=== PATIENT | male | born 1980 | race African-American/Black ===

== ENCOUNTER 2017-06-18 10:08 | Emergency (ER) | payer SELFPAY ==
[~2017-06-18] VITALS: Ht 185.4 cm; Wt 97.1 kg
[2017-06-18] MEDS ORDERED: ONDANSETRON HCL INJ 2 MG/ML VIAL IV STA (10:41)
[2017-06-18] MEDS ORDERED: KETOROLAC TROMETHAMINE 30 MG/ML VIAL IV STA (10:41)
[2017-06-18] MEDS ORDERED: SODIUM CHLORIDE 0.9% 1000ML 1,000 ML IV ONE (10:45)
[2017-06-18 11:36] LABS: STREPTOCOCCUS GRP A ANTIGEN POSITIVE (NEGATIVE)
[2017-06-18 11:45] LABS: INFLUENZAE A&B ANTIGEN (RAPID) NEGATIVE (NEGATIVE)
[2017-06-18 11:58] LABS: BASOPHILS # (AUTO) 0.1 (0.0-0.1); BASOPHILS % 0.5 % (0.0-1.0); EOSINOPHILS % 0.2 % (0.0-6.0); HEMATOCRIT 40.5 % (38.2-49.6); HEMOGLOBIN 13.8 g/dL (14.0-18.0); LYMPHOCYTES # (AUTO) 2.1 (1.0-3.2); LYMPHOCYTES % 21.4 % (18.0-39.1); MEAN CORPUSCULAR HGB CONC 34.1 g/dL (31-35); MEAN CORPUSCULAR VOLUME 85.1 fL (81-99); MONOCYTES # (AUTO) 0.7 (0.2-0.8); MONOCYTES % 7.5 % (4.4-11.3); NEUTROPHILS # (AUTO) 6.7 (2.1-6.9); NEUTROPHILS % 69.6 % (38.7-80.0); PLATELET COUNT 313 x10e3/uL (140-360); RED BLOOD COUNT 4.76 x10e6/uL (4.3-5.7); RED CELL DISTRIBUTION WIDTH 12.4 % (11.7-14.4)
[2017-06-18 12:13] LABS: ANION GAP 16.5 mmol/L (8-16); BLOOD UREA NITROGEN 10 mg/dL (7-26); BUN/CREATININE RATIO 10 (6-25); CALCIUM 9.4 mg/dL (8.4-10.2); CARBON DIOXIDE 25 mmol/L (22-29); CHLORIDE 100 mmol/L (98-107); CREATININE, SERUM 0.97 mg/dL (0.72-1.25); EST GLOMERULAR FILTRATION RATE > 60 ML/MIN (60-); GLUCOSE 90 mg/dL (74-118); POTASSIUM 3.5 mmol/L (3.5-5.1); SODIUM 138 mmol/L (136-145)
[2017-06-18] MEDS ORDERED: PENICILLIN G BENZATHINE LA 1.2 MU TBX IM STA (12:25)
[2017-06-18] MEDS ORDERED: DEXAMETHASONE SOD PHOS 10 MG/1 ML VIAL IV ONE (12:30)
== END 2017-06-18 13:38 | disposition home or self-care (01) ==
LOC: ER 10:08
DX: R50.9 Fever, unspecified (principal); J02.0 Streptococcal pharyngitis
CPT/HCPCS: 36415; 80048; 83518; 85025; 87400; 99283; J0561; J1100; J1885; J2405; J7030

== ENCOUNTER 2017-06-20 09:44 | Inpatient (IN) | payer SELFPAY ==
[~2017-06-20] VITALS: Ht 185.4 cm; Wt 97.1 kg
--- OUTSIDE RECORDS SUMMARY | 2017-06-20 09:46 | XMS REPORT | Continuity of Care Document ---
Author Author [facility] Organization [facility] Address [address] [place] [address] Phone Unavailable Care Team Providers Care Bench Molder Name Role Phone NO, PCP PCP Unavailable Advance Directives Directive Response Recorded Date/Time Does the patient have an advance directive? No 06/18/17 10:24am If yes, is advance directive on file with [facility]? No 06/18/17 10:24am If not on file with [facility] will patient provide a copy? No 06/18/17 10:24am Do you have a Directive to Physician? No 06/18/17 10:24am Do you have a Medical Power of [place] Machine Operator Helper? No 06/18/17 10:24am Do you have an out of hospital Do Not Resuscitate Order? No 06/18/17 10:24am Do you have any special needs we should be aware of? No 06/18/17 10:24am Do you have a support person here with you today? Yes 06/18/17 10:24am Did patient receive Notice of Privacy Practices? Yes 06/18/17 10:24am Did patient receive patient rights and responsibilities? Yes 06/18/17 10:24am Problems No problem information available. Medications No medication information available. Social History Smoking Status Start Date Stop Date Never Smoker Hospital Discharge Instructions No hospital discharge instruction information available. Plan of Care Discharge Date 06/18/17 1:38pm Disposition HOME, SELF-CARE Condition at Discharge Stable Instructions/Education Provided Strep Throat - Adult Forms Provided Work/School Excuse Prescriptions See Medication Section Referrals NO,PCP Functional Status No functional status information available. Allergies, Adverse Reactions, Alerts No known allergies. Immunizations No immunization information available. Vital Signs Acute Vital Signs Vital Response Date/Time Height 6 ft 1 in 06/18/2017 10:22am Weight 214 lb 06/18/2017 10:22am Body Mass Index 28.2 kg/m^2 06/18/2017 10:22am Results Laboratory Results Test Name Result Units Flags Reference Collection Date/Time Result Date/ Time Comments White Blood Count 9.59 x10e3/uL 4.8-10.8 06/18/2017 11:32am 06/18/2017 12:02pm Red Blood Count 4.76 x10e6/uL 4.3-5.7 06/18/2017 11:32am 06/18/2017 12: 02pm Hemoglobin 13.8 g/dL L 14.0-18.0 06/18/2017 11:3206/18/2017 12:02pm Hematocrit 40.5 % 38.2-49.6 06/18/2017 11:3206/18/2017 12:02pm Mean Corpuscular Volume 85.1 fL 81-99 06/18/2017 11:3206/18/2017 12: 02pm Mean Corpuscular Hemoglobin 29.0 pg 28-32 06/18/2017 11:322017 12:02pm Mean Corpuscular Hemoglobin Concent 34.1 g/dL 31-35 06/18/2017 11:3206/18/2017 12:02pm Red Cell Distribution Width 12.4 % 11.7-14.4 06/18/2017 11:322017 12:02pm Platelet Count 313 x10e3/uL 140-360 06/18/2017 11:3206/18/2017 12: 02pm Neutrophils (%) (Auto) 69.6 % 38.7-80.0 06/18/2017 11:3206/18/2017 12:02pm Lymphocytes (%) (Auto) 21.4 % 18.0-39.1 06/18/2017 11:3206/18/2017 12:02pm Monocytes (%) (Auto) 7.5 % 4.4-11.3 06/18/2017 11:3206/18/2017 12: 02pm Eosinophils (%) (Auto) 0.2 % 0.0-6.0 06/18/2017 11:32am 06/18/2017 12: 02pm Basophils (%) (Auto) 0.5 % 0.0-1.0 06/18/2017 11:32am 06/18/2017 12: 02pm IM GRANULOCYTES % 0.8 % 0.0-1.0 06/18/2017 11:32am 06/18/2017 12:02pm Neutrophils # (Auto) 6.7 2.1-6.9 06/18/2017 11:3206/18/2017 12: 02pm Lymphocytes # (Auto) 2.1 1.0-3.2 06/18/2017 11:32am 06/18/2017 12: 02pm Monocytes # (Auto) 0.7 0.2-0.8 06/18/2017 11:32am 06/18/2017 12:02pm Eosinophils # (Auto) 0.0 0.0-0.4 06/18/2017 11:3206/18/2017 12: 02pm Basophils # (Auto) 0.1 0.0-0.1 06/18/2017 11:3206/18/2017 12:02pm Absolute Immature Granulocyte (auto 0.08 x10e3/uL 0-0.1 06/18/2017 11: 32am 06/18/2017 12:02pm Sodium Level 138 mmol/L 136-145 06/18/2017 11:32am 06/18/2017 12:15pm Potassium Level 3.5 mmol/L 3.5-5.1 06/18/2017 11:32am 06/18/2017 12: 15pm Chloride Level 100 mmol/L 98-107 06/18/2017 11:3206/18/2017 12:15pm Influenza Virus Types A,B Antigen NEGATIVE NEGATIVE 06/18/2017 10: 26am 06/18/2017 11:45am Carbon Dioxide Level 25 mmol/L 22-06/18/2017 11:3206/18/2017 12: 15pm Anion Gap 16.5 mmol/L H 8-16 06/18/2017 11:32am 06/18/2017 12:15pm Blood Urea Nitrogen 10 mg/dL 7-06/18/2017 11:3206/18/2017 12: 15pm Creatinine 0.97 mg/dL 0.72-1.25 06/18/2017 11:32am 06/18/2017 12:15pm BUN/Creatinine Ratio 10 6-25 06/18/2017 11:32am 06/18/2017 12:15pm Estimat Glomerular Filtration Rate > 60 ML/MIN 60- 06/18/2017 11:32am 06/18/2017 12:15pm Ranges were taken from the National Kidney Disease Education Program and the National Kid[employer] Foundation literature. Reference ranges: 60 or greater: Normal 16-59 (for 3 consecutive months): Chronic kidney disease 15 or less: Kidney failure Glucose Level 90 mg/dL 74-118 06/18/2017 11:32am 06/18/2017 12:15pm Calcium Level 9.4 mg/dL 8.4-10.2 06/18/2017 11:32am 06/18/2017 12:15pm Group A Streptococcus Screen POSITIVE H NEGATIVE 06/18/2017 10:26am 11:36am Procedures No procedure information available. Encounters Encounter Location Arrival/Admit Date Discharge/Depart Date Attending Provider Departed Emergency Room [facility] 06/18/17 10:08am 06/18 1:38pm FLORECITA PAUL MD
[2017-06-20] MEDS ORDERED: SODIUM CHLORIDE 0.9% 1000ML 1,000 ML IV ONE (10:15)
[2017-06-20] MEDS ORDERED: CLINDAMYCIN PHOS 900MG/ D5W 50 50 ML IV STA (10:16)
[2017-06-20 10:43] LABS: BASOPHILS # (AUTO) 0.1 (0.0-0.1); BASOPHILS % 0.3 % (0.0-1.0); HEMATOCRIT 39.5 % (38.2-49.6); HEMOGLOBIN 13.5 g/dL (14.0-18.0); LYMPHOCYTES # (AUTO) 2.4 (1.0-3.2); LYMPHOCYTES % 11.6 % (18.0-39.1); MEAN CORPUSCULAR HEMOGLOBIN 29.2 pg (28-32); MEAN CORPUSCULAR HGB CONC 34.2 g/dL (31-35); MEAN CORPUSCULAR VOLUME 85.3 fL (81-99); MONOCYTES % 4.9 % (4.4-11.3); NEUTROPHILS # (AUTO) 16.8 (2.1-6.9); NEUTROPHILS % 82.7 % (38.7-80.0); PLATELET COUNT 322 x10e3/uL (140-360); RED BLOOD COUNT 4.63 x10e6/uL (4.3-5.7); RED CELL DISTRIBUTION WIDTH 12.6 % (11.7-14.4)
[2017-06-20] MEDS ORDERED: MORPHINE SULFATE 2 MG/ML SYR IV STA (10:46)
[2017-06-20] MEDS ORDERED: LEVOFLOXACIN 500MG/D5W 100ML 100 ML IV STA (10:49)
[2017-06-20 11:00] LABS: ALANINE AMINOTRANSFERASE 13 IU/L (0-55); ALBUMIN 3.3 g/dL (3.5-5.0); ALBUMIN/GLOBULIN RATIO 0.7 (0.8-2.0); ALKALINE PHOSPHATASE 66 IU/L (40-150); ANION GAP 15.2 mmol/L (8-16); BLOOD UREA NITROGEN 10 mg/dL (7-26); BUN/CREATININE RATIO 9 (6-25); CALCIUM 9.3 mg/dL (8.4-10.2); CARBON DIOXIDE 25 mmol/L (22-29); CHLORIDE 99 mmol/L (98-107); CREATININE, SERUM 1.08 mg/dL (0.72-1.25); EST GLOMERULAR FILTRATION RATE > 60 ML/MIN (60-); GLUCOSE 112 mg/dL (74-118); POTASSIUM 3.2 mmol/L (3.5-5.1); SODIUM 136 mmol/L (136-145)
[2017-06-20] MEDS ORDERED: LEVOFLOXACIN 750MG/D5W 150ML 150 ML IV ONE (11:00)
[2017-06-20] MEDS ORDERED: SODIUM CHLORIDE 0.9% 1000ML 1,000 ML IV SCH (11:05)
[2017-06-20] MEDS ORDERED: FAMOTIDINE 20 MG/2 ML VIAL IV STA (11:11)
[2017-06-20] MEDS ORDERED: SODIUM CHLORIDE 0.9% 1000ML 1,000 ML IV STA ×2 (11:11)
[2017-06-20] MEDS ORDERED: VANCOMYCIN 1GM/NS 250 ML 250 ML IV STA (11:11)
--- NOTE | 2017-06-20 11:58 | Diagnostic Imaging Report ---
PROCEDURE:CHEST SINGLE (PORTABLE) TECHNIQUE:Portable AP chest INDICATION:Fever COMPARISON:None. FINDINGS: Lungs are clear and symmetrically inflated. No pleural effusions. Normal heart size, mediastinal contour, and pulmonary vasculature. Normal skeleton. CONCLUSION: Normal portable chest. Dictated by: Juan Luis Key M.D. on 06/20/2017 at 11:59 Electronically approved by: Juan Luis Key M.D. on 06/20/2017 at 11:59
--- NOTE | 2017-06-20 12:11 | Diagnostic Imaging Report ---
PROCEDURE:CT ABDOMEN AND PELVIS WITH CONTRAST COMPARISON:None. INDICATIONS:Abscess TECHNIQUE: Routine protocol Volumetric CT abdomen and pelvis after administration of 100 mL Isovue-370 intravenous contrast and 900 mL enteric water. Multiplanar reformatted images. DLP: 511.66 FINDINGS: Clear lung bases. No pleural effusions. Normal heart size. Liver: Normal Gallbladder: Normal Pancreas: Normal Spleen: Normal Adrenal glands: Normal Kidneys: Normal Urinary bladder: Normal Prostate and seminal vesicles: Normal Bowel: Normal caliber. Normal appendix. Peritoneum: Normal Vasculature: Normal Lymph nodes: Subcentimeter right inguinal nodes, slightly increased in number. No pelvic or retroperitoneal nodes. Skeleton: Normal Soft tissues: Fat stranding over the right hip and inguinal region without focal fluid collection. CONCLUSION: 1. Soft tissue inflammation over the right hip and inguinal region consistent with cellulitis. No abscess or subcutaneous emphysema. 2. Reactive right inguinal lymphadenopathy. Dictated by: Juan Luis Key M.D. on 06/20/2017 at 12:11 Electronically approved by: Juan Luis Key M.D. on 06/20/2017 at 12:11
--- OUTSIDE RECORDS SUMMARY | 2017-06-20 12:15 | XMS REPORT ---
Author Author [facility] Address Unknown Phone Unavailable Care Team Providers Care Mold Filling Operator Name Role Phone DARY JENKINS Unavailable Unavailable Problems This patient has no known problems. Allergies, Adverse Reactions, Alerts This patient has no known allergies or adverse reactions. Medications This patient has no known medications. Results Test Description Test Time Test Comments Text Results Atomic Results Result Comments CHEST SINGLE (PORTABLE) [place] [address] Patient Name: RODRIGUEZ ACHARYA JR MR #: [id number] : 1980 Age/Sex: 36/M Req #: [id number] Adm Physician: Ordered by: DARY JENKINS MD, MD Report #: [id number] Location: ER Room/Bed: Procedure: [id number] DX/CHEST SINGLE (PORTABLE) Exam Date: 06/20/17 Exam Time: 1145 REPORT STATUS: Signed PROCEDURE: CHEST SINGLE (PORTABLE) TECHNIQUE: Portable AP chest INDICATION: Fever COMPARISON: None. FINDINGS: Lungs are clear and symmetrically inflated. No pleural effusions. Normal heart size, mediastinal contour, and pulmonary vasculature. Normal skeleton. CONCLUSION: Normal portable chest. Dictated by: Crissy Key M.D. on 2017 at 11:59 Electronically approved by: Crissy Key M.D. on 11/2017 at 11:59 Dictated By: CRISSY KEY MD 1159 Transcribed By: NAE on 06/20/17 1159 COPY TO: DARY JENKINS CT ABDOMEN/PELVIS W [facility] [address] [place] [address] Patient Name: RODRIGUEZ ACHARYA JR MR #: [id number] : 1980 Age/Sex: 36/M Req #: [id number] Adm Physician: Ordered by: LESVIA GUERRERO TREATING PLANT OPERATOR Report #: [id number] Location: ER Room/Bed: Procedure: [id number] CT/CT ABDOMEN/PELVIS W Exam Date: 06/20/17 Exam Time: 1120 REPORT STATUS: Signed PROCEDURE: CT ABDOMEN AND PELVIS WITH CONTRAST COMPARISON: None. INDICATIONS: Abscess TECHNIQUE: Routine protocol Volumetric CT abdomen and pelvis after administration of 100 mL Isovue-370 intravenous contrast and 900 mL enteric water. Multiplanar reformatted images. DLP: 511.66 FINDINGS: Clear lung bases. No pleural effusions. Normal heart size. Liver: Normal Gallbladder: Normal Pancreas: Normal Spleen: Normal Adrenal glands: Normal Kidneys: Normal Urinary bladder: Normal Prostate and seminal vesicles: Normal Bowel: Normal caliber. Normal appendix. Peritoneum: Normal Vasculature: Normal Lymph nodes: Subcentimeter right inguinal nodes, slightly increased in number. No pelvic or retroperitoneal nodes. Skeleton: Normal Soft tissues: Fat stranding over the right hip and inguinal region without focal fluid collection. CONCLUSION: 1. Soft tissue inflammation over the right hip and inguinal region consistent with cellulitis. No abscess or subcutaneous emphysema. 2. Reactive right inguinal lymphadenopathy. Dictated by: Crissy Key M.D. on 06/20/2017 at 12:11 Electronically approved by: Crissy Key M.D. on 2017 at 12:11 Dictated By: CRISSY KEY MD 1211 Transcribed By: NAE on 1211 COPY TO: LESVIA GUERRERO NP
[2017-06-20 12:55] LABS: INR 1.31; PROTHROMBIN TIME 15.3 seconds (11.9-14.5)
[2017-06-20 12:56] LABS: PARTIAL THROMBOPLASTIN TIME 49.2 seconds (23.8-35.5)
[2017-06-20 13:00] LABS: MAGNESIUM 1.5 MG/DL (1.3-2.1)
[2017-06-20 13:06] LABS: CREATINE KINASE MB 0.1 ng/mL (0-5.0)
[2017-06-20] MEDS ORDERED: LISINOPRIL10 MG PO (13:11)
[2017-06-20 13:36] VITALS: BP 143/95
[2017-06-20 14:02] VITALS: BP 164/71
[2017-06-20] MEDS: ONDANSETRON HCL INJ 2 MG/ML VIAL IV PRN (14:50)
[2017-06-20] MEDS ORDERED: MIDAZOLAM HCL 2 MG/2 ML VIAL ONE (14:54)
[2017-06-20] MEDS ORDERED: FENTANYL CITRATE/PF 100MCG/2 ML INJ ONE (14:54)
[2017-06-20] MEDS: MORPHINE SULFATE 2 MG/ML SYR IV PRN ×2 (15:01→21:09)
[2017-06-20 15:33] VITALS: BP 125/63
[2017-06-20] MEDS ORDERED: SODIUM CHLORIDE 0.9% 50ML 50 ML ONE (15:34)
[2017-06-20] MEDS ORDERED: IOPAMIDOL 370 MG/ML 200 ML INFUS..BTL INJ ONE (15:34)
[2017-06-20] MEDS ORDERED: POTASSIUM CHLORIDE 20MEQ/100ML 100 ML IV ONE (15:45)
[2017-06-20] MEDS: POTASSIUM CHLORIDE 20MEQ/100ML 100 ML IV ONE ×2 (16:00→16:20)
[2017-06-20] MEDS: CLINDAMYCIN PHOS 900MG/ D5W 50 50 ML IV SCH ×2 (17:00→23:10)
--- NOTE | 2017-06-20 20:09 | Consultation ---
DATE OF CONSULTATION: June 20, 2017 CHIEF COMPLAINT: Right groin infection. HISTORY OF PRESENT ILLNESS: The patient is a 36-year-old male with chief complaint of a 2-day history of right groin swelling, redness and tenderness with subjective fever. Denied history of insect bite or injury to the area. No prior history of similar infection. REVIEW OF SYSTEMS: No chest pain or shortness of breath or cough. PAST MEDICAL HISTORY: Unremarkable for any chronic medical illness or surgery. ALLERGIES: NO KNOWN DRUG ALLERGIES. SOCIAL HABITS: The patient denies smoking or alcohol abuse. PHYSICAL EXAMINATION: VITALS: Stable. He has a temperature of 100. GENERAL: Patient is awake, alert in moderate discomfort. HEENT: Sclerae nonicteric. NECK: Supple. LUNGS: Clear. HEART: Regular rate and rhythm. ABDOMEN: Soft and nontender. EXTREMITIES: Revealed redness and swelling in the right medial thigh near the groin area with a small puncture wound, medial aspect draining purulent material. White cell count 20,000. Hemoglobin of 13. Creatinine 1.0. CT scan of the pelvis showed soft tissue inflammation with no abscess formation. ASSESSMENT: Soft tissue infection in the right inguinal area. IV antibiotics. Patient may need incision and drainage if no progress with antibiotics alone. Thank you for the consultation. Job#: [id number]
[2017-06-21] MEDS ORDERED: MEROPENEM 1GRAM 1 GM in SODIUM CHLORIDE 0.9% 100 ML 100 ML IV PRN (00:15)
[2017-06-21 00:31] VITALS: BP 149/93
[2017-06-21] MEDS: VANCOMYCIN 1GM/NS 250 ML 250 ML IV SCH ×2 (01:28→13:47)
[2017-06-21] MEDS: ACETAMINOPHEN 325 MG TAB PO PRN ×2 (01:32→19:48)
[2017-06-21] MEDS: MORPHINE SULFATE 2 MG/ML SYR IV PRN ×4 (03:08→20:11)
[2017-06-21] MEDS ORDERED: MEROPENEM 1 GM VIAL ONE ×2 (05:07→21:17)
[2017-06-21] MEDS: MEROPENEM 1GRAM 1 GM in SODIUM CHLORIDE 0.9% 100 ML 100 ML IV SCH ×3 (05:22→21:34)
[2017-06-21] MEDS: LISINOPRIL 20 MG TAB PO SCH (05:22)
[2017-06-21] MEDS: CLINDAMYCIN PHOS 900MG/ D5W 50 50 ML IV SCH ×4 (05:22→22:47)
[2017-06-21] MEDS ORDERED: LISINOPRIL 10 MG TAB PO SCH (06:00)
[2017-06-21 06:17] LABS: BASOPHILS # (AUTO) 0.1 (0.0-0.1); BASOPHILS % 0.2 % (0.0-1.0); EOSINOPHILS # (AUTO) 0.1 (0.0-0.4); EOSINOPHILS % 0.3 % (0.0-6.0); HEMATOCRIT 33.5 % (38.2-49.6); LYMPHOCYTES # (AUTO) 2.1 (1.0-3.2); LYMPHOCYTES % 7.7 % (18.0-39.1); MEAN CORPUSCULAR HEMOGLOBIN 29.3 pg (28-32); MEAN CORPUSCULAR HGB CONC 32.8 g/dL (31-35); MEAN CORPUSCULAR VOLUME 89.3 fL (81-99); MONOCYTES # (AUTO) 0.7 (0.2-0.8); MONOCYTES % 2.6 % (4.4-11.3); NEUTROPHILS # (AUTO) 23.8 (2.1-6.9); NEUTROPHILS % 88.5 % (38.7-80.0); PLATELET COUNT 284 x10e3/uL (140-360); RED BLOOD COUNT 3.75 x10e6/uL (4.3-5.7); RED CELL DISTRIBUTION WIDTH 12.8 % (11.7-14.4)
[2017-06-21 06:43] LABS: ANION GAP 13.6 mmol/L (8-16); BLOOD UREA NITROGEN 8 mg/dL (7-26); BUN/CREATININE RATIO 9 (6-25); CALCIUM 8.3 mg/dL (8.4-10.2); CARBON DIOXIDE 24 mmol/L (22-29); CHLORIDE 106 mmol/L (98-107); CREATININE, SERUM 0.85 mg/dL (0.72-1.25); EST GLOMERULAR FILTRATION RATE > 60 ML/MIN (60-); GLUCOSE 97 mg/dL (74-118); POTASSIUM 3.6 mmol/L (3.5-5.1); SODIUM 140 mmol/L (136-145)
[2017-06-21 07:47] VITALS: BP 121/75
[2017-06-21] MEDS: KETOROLAC TROMETHAMINE 30 MG/ML VIAL IV PRN ×2 (08:47→19:25)
[2017-06-21 11:22] VITALS: BP 121/75
[2017-06-21] MEDS ORDERED: LEVOFLOXACIN 750MG/D5W 150ML 150 ML IV SCH (12:00)
[2017-06-21] MEDS: ONDANSETRON HCL INJ 2 MG/ML VIAL IV PRN ×2 (16:07→20:09)
--- NOTE | 2017-06-21 16:46 | Consultation ---
DATE OF CONSULTATION: June 21, 2017 REASON FOR CONSULTATION: Right groin infection. HISTORY OF PRESENT ILLNESS: This is 36-year-old gentleman who comes in with 2 days history of right groin redness and swelling. He denies any trauma. PAST MEDICAL HISTORY: Unremarkable. PAST SURGICAL HISTORY: Denies. ALLERGIES: NKA. SOCIAL HISTORY: There is no smoking, drug abuse. LABS: White count on admission 20, hemoglobin 13. Sodium 136, potassium 3.2, creatinine 1.08. His cultures are still pending. He had CT of the pelvis, showed soft tissue swelling over the right hip region consistent with cellulitis, no abscess. PHYSICAL EXAMINATION: GENERAL: He is currently alert and oriented, does not seem to be in acute distress. VITALS: Stable, currently afebrile. T-max 100. HEENT: He does not appear icteric. NECK: Supple. CHEST: Few crackles bilateral. COR: S1 and S2, no murmur. ABDOMEN: Soft. In right groin, there is erythema, there is edema. IMPRESSION: Soft tissue infection, right inguinal area. Put him on meropenem and vancomycin. May need I and D. Surgery has been consulted. Will follow. Job#: [id number]
[2017-06-21 21:08] VITALS: BP 133/70
[2017-06-21] MEDS ORDERED: SODIUM CHLORIDE 0.9% 100 ML ONE (21:19)
[2017-06-21] MEDS: FAMOTIDINE 20 MG/2 ML VIAL IV SCH (21:43)
[2017-06-21 22:00] VITALS: BP 100/65
[2017-06-21] MEDS ORDERED: SODIUM CHLORIDE 0.9% 250ML 250 ML ONE (22:47)
[2017-06-22 00:41] VITALS: BP 100/65
[2017-06-22] MEDS: VANCOMYCIN 1GM/NS 250 ML 250 ML IV SCH ×2 (01:03→13:00)
[2017-06-22] MEDS: MORPHINE SULFATE 2 MG/ML SYR IV PRN ×2 (03:50→09:42)
[2017-06-22] MEDS: CLINDAMYCIN PHOS 900MG/ D5W 50 50 ML IV SCH ×4 (04:51→22:30)
[2017-06-22 05:18] VITALS: BP 194/87
[2017-06-22] MEDS: MEROPENEM 1GRAM 1 GM in SODIUM CHLORIDE 0.9% 100 ML 100 ML IV SCH (06:05)
[2017-06-22] MEDS: LISINOPRIL 20 MG TAB PO SCH (06:06)
[2017-06-22 07:01] LABS: BASOPHILS # (AUTO) 0.1 (0.0-0.1); BASOPHILS % 0.2 % (0.0-1.0); EOSINOPHILS # (AUTO) 0.2 (0.0-0.4); EOSINOPHILS % 0.7 % (0.0-6.0); HEMATOCRIT 31.8 % (38.2-49.6); HEMOGLOBIN 10.8 g/dL (14.0-18.0); LYMPHOCYTES # (AUTO) 1.5 (1.0-3.2); LYMPHOCYTES % 4.4 % (18.0-39.1); MEAN CORPUSCULAR HEMOGLOBIN 29.3 pg (28-32); MEAN CORPUSCULAR VOLUME 86.2 fL (81-99); MONOCYTES # (AUTO) 0.9 (0.2-0.8); MONOCYTES % 2.7 % (4.4-11.3); NEUTROPHILS # (AUTO) 30.4 (2.1-6.9); NEUTROPHILS % 90.3 % (38.7-80.0); PLATELET COUNT 314 x10e3/uL (140-360); RED BLOOD COUNT 3.69 x10e6/uL (4.3-5.7); RED CELL DISTRIBUTION WIDTH 12.8 % (11.7-14.4)
[2017-06-22] MEDS ORDERED: BACITRACIN 50,000 UNIT VIAL ONE (07:28)
[2017-06-22] MEDS ORDERED: BUPIVACAINE 0.5%/EPI 30 ML SDV INJ ONE (08:36)
[2017-06-22 09:10] LABS: BAND NEUTROPHILS % (MANUAL) 2 %; LYMPHOCYTES % (MANUAL) 3 % (19-48); MONOCYTES % (MANUAL) 1 % (3.4-9.0); NEUTROPHILS % (MANUAL) 94 % (40-74); PLATELET ESTIMATE ADEQUATE; PLATELET MORPHOLOGY COMMENT NORMAL; RBC MORPHOLOGY COMMENT NORMAL
[2017-06-22 09:29] VITALS: BP 121/63
[2017-06-22] MEDS: FAMOTIDINE 20 MG/2 ML VIAL IV SCH (09:41)
--- NOTE | 2017-06-22 11:30 | Operative Report ---
DATE OF PROCEDURE: June 22, 2017 PREOPERATIVE DIAGNOSIS: Right thigh abscess. POSTOPERATIVE DIAGNOSIS: Right thigh abscess. OPERATIVE PROCEDURE: Incision and drainage, right thigh abscess. ANESTHESIA: General. INDICATIONS: A 36-year-old male with 5-day history of right thigh swelling and redness consistent with soft-tissue infection. The patient consented for incision and drainage of the right thigh abscess after 2 days of antibiotics. PROCEDURE FINDINGS: Abscess cavity with some purulent material in the right medial thigh. DESCRIPTION OF PROCEDURE: Patient was brought to the OR and intubated. The right thigh was exposed by froglegging. It was then prepped with alcohol and draped in a sterile fashion. There was a small wound opening on the medial thigh near the inguinal skin crease. This opening was cannulated with a hemostat showing a track which was going obliquely in a lateral direction. The overlying skin was anesthetized with half percent Marcaine with epinephrine. Then the abscess cavity was then unroofed by making linear incisions through skin and subcutaneous tissue, completely opening the abscess cavity. Some purulent material was obtained for culture and sensitivity. Digital exploration was then carried out in the cavity to break up all loculations which was then irrigated. Wound was then packed with iodoform gauze. Hemostasis achieved and dressing applied. The patient tolerated the procedure well, extubated and transported to the recovery room. Estimated blood loss 5 mL. Job#: [id number]
[2017-06-22 11:53] VITALS: BP 111/59
--- NOTE | 2017-06-22 13:33 | Consultation ---
DATE OF CONSULTATION: REASON FOR CONSULTATION: Groin abscess. DICTATION STOPPED AT THIS POINT. Job#: [id number] MH
[2017-06-22] MEDS: NAPROXEN 250 MG TAB PO SCH ×2 (13:45→17:00)
[2017-06-22] MEDS: PANTOPRAZOLE SOD 40 MG TABEC PO SCH (13:45)
[2017-06-22] MEDS ORDERED: ACETAMINOPHEN/CODEINE 300MG - 30MG TAB PO PRN (13:45)
[2017-06-22] MEDS: MEROPENEM 1 GM VIAL IV SCH ×2 (14:00→21:26)
[2017-06-22] MEDS ORDERED: GLYCOPYRROLATE INJ 1MG/ 5 ML SYR ONE (14:40)
[2017-06-22] MEDS ORDERED: SEVOFLURANE INHAL SOLN 250 ML PEN BTL ONE (14:40)
[2017-06-22] MEDS ORDERED: DEXAMETHASONE SOD PHOS INJ 4 MG/ML VIAL ONE (14:40)
[2017-06-22] MEDS ORDERED: ONDANSETRON HCL INJ 2 MG/ML VIAL ONE (14:40)
[2017-06-22] MEDS ORDERED: PROPOFOL IV EMULSION 10 MG/ML 20 ML VIAL ONE (14:40)
[2017-06-22] MEDS ORDERED: LIDOCAINE HCL 2% LOCAL INJ 5 ML SDV VIAL INJ ONE (14:40)
[2017-06-22 16:29] VITALS: BP 133/80
[2017-06-22] MEDS ORDERED: SODIUM CHLORIDE 0.9% 250ML 250 ML ONE (18:39)
[2017-06-22 20:00] VITALS: BP 131/83
[2017-06-23 00:45] VITALS: BP 120/74
[2017-06-23] MEDS: VANCOMYCIN 1GM/NS 250 ML 250 ML IV SCH (00:57)
[2017-06-23] MEDS: CLINDAMYCIN PHOS 900MG/ D5W 50 50 ML IV SCH (04:28)
[2017-06-23] MEDS: PANTOPRAZOLE SOD 40 MG TABEC PO SCH (04:31)
[2017-06-23] MEDS: MEROPENEM 1 GM VIAL IV SCH (06:16)
[2017-06-23] MEDS: LISINOPRIL 20 MG TAB PO SCH (06:16)
[2017-06-23 06:22] VITALS: BP 127/75
[2017-06-23 07:42] LABS: BASOPHILS # (AUTO) 0.1 (0.0-0.1); BASOPHILS % 0.1 % (0.0-1.0); EOSINOPHILS # (AUTO) 0.2 (0.0-0.4); EOSINOPHILS % 0.6 % (0.0-6.0); HEMATOCRIT 33.1 % (38.2-49.6); HEMOGLOBIN 10.9 g/dL (14.0-18.0); LYMPHOCYTES # (AUTO) 2.6 (1.0-3.2); LYMPHOCYTES % 7.5 % (18.0-39.1); MEAN CORPUSCULAR HGB CONC 32.9 g/dL (31-35); MONOCYTES # (AUTO) 1.2 (0.2-0.8); MONOCYTES % 3.5 % (4.4-11.3); NEUTROPHILS # (AUTO) 29.8 (2.1-6.9); NEUTROPHILS % 86.8 % (38.7-80.0); PLATELET COUNT 365 x10e3/uL (140-360); RED BLOOD COUNT 3.76 x10e6/uL (4.3-5.7); RED CELL DISTRIBUTION WIDTH 12.7 % (11.7-14.4)
[2017-06-23 07:56] VITALS: BP 137/83
[2017-06-23] MEDS: NAPROXEN 250 MG TAB PO SCH (08:00)
[2017-06-23 12:08] VITALS: BP 134/87
[2017-06-23] MEDS ORDERED: CLINDAMYCIN PHOS 900MG/ D5W 50 50 ML IV SCH (14:00)
[2017-06-23 16:03] VITALS: BP 123/54
--- NOTE | 2017-06-23 17:45 | Discharge Summary ---
FINAL DIAGNOSES 1. Right thigh abscess, status post incision and drainage of right thigh abscess. 2. Gram-positive karina infection on the gram stain. SUMMARY: Patient a 36-year-old male with right thigh abscess status post incision and drainage done by Dr. Ernesto Zamorano. The patient was seen by Dr. Bueno. The patient has been cleared for discharge home after dressing changes. He will go home on doxycycline 100 mg twice a day for 14 days, Cipro 500 mg b.i.d. for 14 days, and clindamycin 300 mg t.i.d. for 10 days. Patient is stable. Discharged home with pain medication. The patient will follow up with either Dr. Bueno or myself and Dr. Zamorano in approximately 1 week. Discussed with the patient regarding whirlpool treatment. The patient expressed understanding, and he does want go home today. Job#: [id number] ELSIE
== END 2017-06-23 16:29 | disposition home or self-care (01) | DRG 580 ==
LOC: ER 09:44 → ERHOLD 12:12 → MED/SURG2 12:13
PROVIDERS: ADMIT Internal Medicine; ATTEND Internal Medicine
PROC: 0J9L0ZZ Drainage of Right Upper Leg Subcutaneous Tissue and Fascia, Open Approach (ICD-10-PCS; principal; 2017-06-22 08:00)
DX: L03.314 Cellulitis of groin (principal); L02.416 Cutaneous abscess of left lower limb; E83.51 Hypocalcemia; B96.89 Other specified bacterial agents as the cause of diseases classified elsewhere
CPT/HCPCS: 36415; 71045; 74177; 80048; 80053; 82550; 82553; 83605; 83735; 83880; 84484; 85025; 85027; 85610; 85730; 87040; 87071; 87075; 87205; 93005; 99284; J1100; J1885; J2001; J2185; J2250; J2270; J2405; J3370; J3480; J7030; J7050; Q9967